=== PATIENT | male | born 1970 | race American Indian/Alaskan Native ===

== ENCOUNTER 2017-06-30 12:18 | Emergency (ER) | payer OTHER ==
[2017-06-30] MEDS ORDERED: EPINEPHrine 1:10,000 1 MG/10 ML Syringe IV ONE (12:19)
[2017-06-30] MEDS ORDERED: Sodium Bicarbonate 8.4% 50 MEQ/50 ML Syringe IV ONE (12:19)
[2017-06-30] MEDS ORDERED: Sodium Chloride 0.9% 1,000 ML IV ONE ×2 (12:59→15:53)
--- NOTE | 2017-06-30 13:05 | EDM.PDOC ---
ED HPI GENERAL MEDICAL PROBLEM - General Chief Complaint: Abdominal Pain Stated Complaint: ?FLU Time Seen by Provider: 06/30/17 12:55 Source of Information: Reports: Patient History Limitations: Reports: No Limitations - History of Present Illness INITIAL COMMENTS - FREE TEXT/NARRATIVE: This 47 yo male patient reports to the ED due to diffuse abdominal pain. The patient reports his pain started yesterday and describes it as a constant aching throughout his abdomen. The patient reports he believes that he had the flu last week, went back to work last Wednesday, but has not felt well since the beginning of the flu-like symptoms. The patient reports he did have a bowel movement yesterday, but has not had to go today. The patient reports no back pain and no problems urinating. Onset Date: 06/29/17 Duration: Constant Location: Reports: Abdomen Quality: Reports: Ache, Pressure Severity: Moderate Improves with: Reports: None Worsens with: Reports: None Associated Symptoms: Reports: No Other Symptoms Abdomen Pain Score (Numeric/FACES): 6 - Related Data Allergies Allergy/AdvReac Type Severity Reaction Status Date / Time No Known Allergies Allergy Verified 06/30/17 12:22 Home Meds: Home Meds . [No Known Home Meds] 06/25/16 [History] Past Medical History - Past Health History Medical/Surgical History: Denies Medical/Surgical History - Infectious Disease History Infectious Disease History: Reports: Chicken Pox Social & Family History - Family History Family Medical History: Noncontributory - Tobacco Use Smoking Status *Q: Never Smoker - Caffeine Use Caffeine Use: Reports: Coffee, Tea - Alcohol Use Days Per Week of Alcohol Use: 4 Number of Drinks Per Day: 8 Total Drinks Per Week: 32 Date of Last Drink: 06/19/17 - Recreational Drug Use Recreational Drug Use: No ED ROS GENERAL - Review of Systems Review Of Systems: ROS reveals no pertinent complaints other than HPI. ED EXAM, GI/ABD - Physical Exam Exam: See Below Exam Limited By: No Limitations General Appearance: Alert, WD/WN, Moderate Distress Eyes: Bilateral: Normal Appearance, EOMI Ears: Normal External Exam, Normal Canal, Hearing Grossly Normal, Normal TMs Nose: Normal Inspection, Normal Mucosa, No Blood Throat/Mouth: Normal Inspection, Normal Lips, Normal Teeth, Normal Gums, Normal Oropharynx, Normal Voice, No Airway Compromise Head: Atraumatic, Normocephalic Neck: Normal Inspection, Supple, Non-Tender, Full Range of Motion Respiratory/Chest: No Respiratory Distress, Lungs Clear, Normal Breath Sounds, No Accessory Muscle Use, Chest Non-Tender Cardiovascular: Normal Peripheral Pulses, Regular Rate, Rhythm, No Edema, No Gallop, No JVD, No Murmur, No Rub GI/Abdominal Exam: Normal Bowel Sounds, Guarding (throughout abdomen), Rigid, Rebound, Tender (generalized tenderness) (Male) Exam: Deferred Rectal (Males) Exam: Deferred Back Exam: Normal Inspection, Full Range of Motion, NT Extremities: Normal Inspection, Normal Range of Motion, Non-Tender, Normal Capillary Refill, No Pedal Edema Neurological: Alert, Oriented, CN II-XII Intact, Normal Cognition, Normal Reflexes, No Motor/Sensory Deficits Psychiatric: Normal Affect, Normal Mood Skin Exam: Warm, Dry, Intact, Normal Color, No Rash Lymphatic: No Adenopathy Course - Vital Signs Last Recorded V/S: Last Vital Signs Temp 37.4 C 06/30/17 15:49 Pulse 168 H 06/30/17 15:49 Resp 18 06/30/17 15:49 BP 89/56 L 06/30/17 15:49 Pulse Ox 95 06/30/17 15:49 - Orders/Labs/Meds Orders: Active Orders 24 hr Category Date Time Status CULTURE BLOOD [BC] Stat Lab 06/30/17 15:50 Received CULTURE BLOOD [BC] Stat Lab 06/30/17 15:55 Received Blood Culture x2 Reflex Set [OM.PC] Stat Oth 06/30/17 15:44 Ordered Labs: Laboratory Tests 06/30/17 06/30/17 06/30/17 Range/Units 13:05 13:05 13:05 WBC 15.6 H (5.0-10.0) 10^3/uL RBC 5.33 (4.6-6.2) 10^6/uL Hgb 15.3 (14.0-18.0) g/dL Hct 44.3 (40.0-54.0) % MCV 83.1 (80-100) fL MCH 28.7 (27.0-34.0) pg MCHC 34.5 (33.0-35.0) g/dL Plt Count 412 (150-450) 10^3/uL Neut % (Auto) 78.9 H (42.2-75.2) % Lymph % (Auto) 11.0 L (20.5-50.1) % Morton % (Auto) 9.2 H (2-8) % Eos % (Auto) 0.6 L (1.0-3.0) % Baso % (Auto) 0.3 (0.0-1.0) % D-Dimer, Quantitative (0-400) ng/mL Sodium 129 L (135-145) mmol/L Potassium 4.1 (3.6-5.0) mmol/L Chloride 90 L (101-111) mmol/L Carbon Dioxide 24.0 (21.0-31.0) mmol/L Anion Gap 19.1 BUN 8 (7-18) mg/dL Creatinine 0.9 (0.6-1.3) mg/dL Est Cr Clr Drug Dosing 115.90 mL/min Estimated GFR (MDRD) > 60 BUN/Creatinine Ratio 8.88 Glucose 448 H* (74-105) mg/dL Lactic Acid (0.5-2.2) mmol/L Calcium 8.9 (8.4-10.2) mg/dl Total Bilirubin 1.5 H (0.2-1.0) mg/dL AST 193 H (10-42) IU/L ALT 67 H (10-60) IU/L Alkaline Phosphatase 116 (42-121) IU/L Troponin I (0.00-0.02) ng/ml Total Protein 7.7 (6.7-8.2) g/dl Albumin 4.0 (3.2-5.5) g/dl Globulin 3.7 Albumin/Globulin Ratio 1.08 Amylase 11 L (28-100) U/L Lipase 22 (22-51) U/L Urine Color (YELLOW) Urine Appearance (CLEAR) Urine pH (5.0-9.0) Ur Specific [place] (1.005-1.030) Urine Protein (NEGATIVE) Urine Glucose (UA) (NEGATIVE) Urine Ketones (NEGATIVE) Urine Occult Blood (NEGATIVE) Urine Nitrite (NEGATIVE) Urine Bilirubin (NEGATIVE) Urine Urobilinogen (0.2-1.0) mg/dL Ur Leukocyte Esterase (NEGATIVE) Urine RBC /HPF Urine WBC (0-5/HPF) /HPF Ur Epithelial Cells /HPF Urine Bacteria (0-FEW/HPF) /HPF Urine Mucus /LPF 06/30/17 06/30/17 06/30/17 Range/Units 13:09 15:50 15:50 WBC (5.0-10.0) 10^3/uL RBC (4.6-6.2) 10^6/uL Hgb (14.0-18.0) g/dL Hct (40.0-54.0) % MCV (80-100) fL MCH (27.0-34.0) pg MCHC (33.0-35.0) g/dL Plt Count (150-450) 10^3/uL Neut % (Auto) (42.2-75.2) % Lymph % (Auto) (20.5-50.1) % Morton % (Auto) (2-8) % Eos % (Auto) (1.0-3.0) % Baso % (Auto) (0.0-1.0) % D-Dimer, Quantitative 1060 H (0-400) ng/mL Sodium (135-145) mmol/L Potassium (3.6-5.0) mmol/L Chloride (101-111) mmol/L Carbon Dioxide (21.0-31.0) mmol/L Anion Gap BUN (7-18) mg/dL Creatinine (0.6-1.3) mg/dL Est Cr Clr Drug Dosing mL/min Estimated GFR (MDRD) BUN/Creatinine Ratio Glucose (74-105) mg/dL Lactic Acid (0.5-2.2) mmol/L Calcium (8.4-10.2) mg/dl Total Bilirubin (0.2-1.0) mg/dL AST (10-42) IU/L ALT (10-60) IU/L Alkaline Phosphatase (42-121) IU/L Troponin I 37.79 H* (0.00-0.02) ng/ml Total Protein (6.7-8.2) g/dl Albumin (3.2-5.5) g/dl Globulin Albumin/Globulin Ratio Amylase (28-100) U/L Lipase (22-51) U/L Urine Color Yellow (YELLOW) Urine Appearance Clear (CLEAR) Urine pH 5.5 (5.0-9.0) Ur Specific [place] <= 1.005 (1.005-1.030) Urine Protein Trace H (NEGATIVE) Urine Glucose (UA) >=1000 H (NEGATIVE) Urine Ketones 40 H (NEGATIVE) Urine Occult Blood Trace-intact H (NEGATIVE) Urine Nitrite Negative (NEGATIVE) Urine Bilirubin Negative (NEGATIVE) Urine Urobilinogen 0.2 (0.2-1.0) mg/dL Ur Leukocyte Esterase Negative (NEGATIVE) Urine RBC 0-5 /HPF Urine WBC 0-5 (0-5/HPF) /HPF Ur Epithelial Cells Rare /HPF Urine Bacteria Not seen (0-FEW/HPF) /HPF Urine Mucus Not seen /LPF 06/30/17 Range/Units 15:55 WBC (5.0-10.0) 10^3/uL RBC (4.6-6.2) 10^6/uL Hgb (14.0-18.0) g/dL Hct (40.0-54.0) % MCV (80-100) fL MCH (27.0-34.0) pg MCHC (33.0-35.0) g/dL Plt Count (150-450) 10^3/uL Neut % (Auto) (42.2-75.2) % Lymph % (Auto) (20.5-50.1) % Morton % (Auto) (2-8) % Eos % (Auto) (1.0-3.0) % Baso % (Auto) (0.0-1.0) % D-Dimer, Quantitative (0-400) ng/mL Sodium (135-145) mmol/L Potassium (3.6-5.0) mmol/L Chloride (101-111) mmol/L Carbon Dioxide (21.0-31.0) mmol/L Anion Gap BUN (7-18) mg/dL Creatinine (0.6-1.3) mg/dL Est Cr Clr Drug Dosing mL/min Estimated GFR (MDRD) BUN/Creatinine Ratio Glucose (74-105) mg/dL Lactic Acid 5.4 H (0.5-2.2) mmol/L Calcium (8.4-10.2) mg/dl Total Bilirubin (0.2-1.0) mg/dL AST (10-42) IU/L ALT (10-60) IU/L Alkaline Phosphatase (42-121) IU/L Troponin I (0.00-0.02) ng/ml Total Protein (6.7-8.2) g/dl Albumin (3.2-5.5) g/dl Globulin Albumin/Globulin Ratio Amylase (28-100) U/L Lipase (22-51) U/L Urine Color (YELLOW) Urine Appearance (CLEAR) Urine pH (5.0-9.0) Ur Specific [place] (1.005-1.030) Urine Protein (NEGATIVE) Urine Glucose (UA) (NEGATIVE) Urine Ketones (NEGATIVE) Urine Occult Blood (NEGATIVE) Urine Nitrite (NEGATIVE) Urine Bilirubin (NEGATIVE) Urine Urobilinogen (0.2-1.0) mg/dL Ur Leukocyte Esterase (NEGATIVE) Urine RBC /HPF Urine WBC (0-5/HPF) /HPF Ur Epithelial Cells /HPF Urine Bacteria (0-FEW/HPF) /HPF Urine Mucus /LPF Meds: Medications Discontinued Medications Generic Name Dose Route Start Last Admin Trade Name Freq PRN Reason Stop Dose Admin Sodium Chloride 1,000 mls @ 250 mls/hr 06/30/17 12:59 06/30/17 13:13 Normal Saline IV 06/30/17 16:58 250 mls/hr .BOLUS ONE Administration Sodium Chloride 1,000 mls @ 999 mls/hr 06/30/17 15:53 Normal Saline IV 06/30/17 16:53 .BOLUS ONE Iopamidol 100 ml 06/30/17 14:16 06/30/17 14:43 Isovue-300 (61%) IVPUSH 06/30/17 14:17 100 ml ONETIME ONE Administration Morphine Sulfate 2 mg 06/30/17 14:21 06/30/17 14:27 Morphine IVPUSH 06/30/17 14:22 2 mg ONETIME ONE Administration - Re-Assessments/Exams Free Text/Narrative Re-Assessment/Exam: 06/30/17 14:22 Discussed the lab results with the patient. The patient reports that he continues to have pain and would accept something to ease his pain at this time. A CT with contrast was ordered for further evaluation of the abdominal pain. 06/30/17 17:[address] results, the patient reported increased shortness of breath , heartrate went up to 170's, blood pressure dropped and oxygen saturations dropped. A bolus of IV fluids was started. The EKG demonstrated sinus tach initially. The patient was moved to our trauma room, additional labs ordered and chest x-ray ordered. As orders were being placed in the computer, the patient had a brief episode of seizure activity and stopped breathing. CPR was started. The patient was given numerous doses of Epi, 2 doses of sodium bicarb and he was intubated. Kaya was on the E-medicine assisting with progression of treatment. At one point, the EKG demonstrated a fine V-fib and the patient was shocked with no return of spontaneous pulse. The code was called at [id number]. 06/30/17 17:09 Departure - Departure Time of Disposition: 16:27 Disposition: 20 Condition: Critical Clinical Impression: Cardiac arrest - Discharge Information - My Orders Last 24 Hours: My Active Orders 06/30/17 15:44 Blood Culture x2 Reflex Set [OM.PC] Stat 06/30/17 15:50 CULTURE BLOOD [BC] Stat 06/30/17 15:55 CULTURE BLOOD [BC] Stat - Assessment/Plan Last 24 Hours: My Active Orders 06/30/17 15:44 Blood Culture x2 Reflex Set [OM.PC] Stat 06/30/17 15:50 CULTURE BLOOD [BC] Stat 06/30/17 15:55 CULTURE BLOOD [BC] Stat
[2017-06-30 13:37] LABS: ANION GAP 19.1; CHLORIDE,CL 90 mmol/L (101-111); SODIUM,NA 129 mmol/L (135-145)
[2017-06-30] MEDS ORDERED: Iopamidol 612 MG/ML 100 ML Bottle IVPUSH ONE (14:16)
[2017-06-30] MEDS ORDERED: Morphine 2 MG/ML Syringe IVPUSH ONE (14:21)
[2017-06-30 15:50] VITALS: BP 89/56
--- NOTE | 2017-06-30 16:00 | CT ---
Clinical history: 47-year-old 211 pound male with diffuse abdominal pain. No known surgeries or traum a. Scan technique: Volume acquisition of data from the abdomen and pelvis including kidneys/ureters/blad susi) obtained without oral contrast but during intravenous ministration 100 cc nonionic Isovue contra st (3 cc/s via injector) while patient was lying supine on the Siemens multi slice scanner [place], [place]. All data archived in the PACS system for storage, reformatting and study. Interpretation: 1. Diverticula transverse colon and flexures. Minimal stool. 2. Dense calcifications midline prostate gland. Symmetric normal kidneys without sign of cortical mas s stones or obstruction. 3. Fatty liver. Gallbladder, stomach, spleen, pancreas and adrenal glands unremarkable. Normal append ix RUQ. 4. Normal caliber aortoiliac vessels. L5 spondylolysis and chronic severe L5-S1 disc disease this licha dotic patient. 5. No sign of pelvic or abdominal mass lesion, inflammatory "dirty" peritoneal fat, mechanical bowel obstruction, ascites or free air. 6. Small inguinal hernia (peritoneal fat) without incarcerated bowel right groin. 7. Patchy consolidation posterior segment left lower lobe (recommend conventional chest radiograph). CONCLUSION: Abnormal lower lumbar spine and prostate gland. Patchy left lower lobe consolidation. Fat ty liver. Diverticulosis colon.
--- NOTE | 2017-06-30 16:04 | CR ---
Clinical history: 47-year-old male diffuse abdominal pain and subtle asymmetric abnormality left lung base on CT abdomen. Interpretation: Abnormal. AP portable chest film confirms asymmetric dense pneumonic like consolidation involving left midlung. Normal cardiac silhouette without cephalization of flow or signs of alveolar edema. No dependent pleu ral effusions. No lung mass or abnormal consolidation right lung. CONCLUSION: Extensive left midlung consolidation. Recommend follow-up PA/lateral chest films or CT. D dimer? WBC?
--- NOTE | 2017-06-30 16:26 | CR ---
Clinical history: 47-year-old male "coded" in the emergency department. AP portable chest film confirms satisfactory midline location of endotracheal tube. External shelter monitor leads. Generally better lung aeration this patient with some asymmetric midlung pneumonic like consolidation on the left. No other focal lobar infiltrate or atelectasis. Normal cardiac silhouette without alveolar edema or dependent pleural effusion. No pneumomediastinum or pneumothorax
--- NOTE | 2017-07-04 15:20 | EKG ---
06/30/2017 - GLORY OHARA - This 12-lead EKG shows a tachycardia with a ventricular rate of 165. EKG is grossly abnormal with ST-segment elevations seen in all leads. This patient subsequently developed cardiopulmonary arrest and shortly after this EKG was taken. [facility] /[id number] MTDD
== END 2017-06-30 14:27 | disposition expired ==
LOC: DL.ED 12:18
DX: I46.9 Cardiac arrest, cause unspecified (principal)
CPT/HCPCS: 36415; 71045; 74177; 80053; 80305; 81001; 82150; 83036; 83605; 83690; 84484; 85025; 85379; 87040; 87804; 92950; 96361; 96374; 96375; 99285; J0171; J2270; J7030; Q9967